=== PATIENT | female | born 1960 | race Two or more races ===

== ENCOUNTER 2019-04-09 06:08 | Inpatient (IN) | payer OTHER ==
[~2019-04-09] VITALS: Ht 152.4 cm; Wt 66.2 kg
[2019-04-09 08:00] VITALS: BP 115/76
[2019-04-09] MEDS ORDERED: ASPIRIN 81 MG TAB.CHEW PO SCH (09:30)
[2019-04-09] MEDS ORDERED: ATORVASTATIN 10 MG TABLET PO SCH (09:30)
[2019-04-09] MEDS ORDERED: CARVEDILOL 3.125 MG TABLET PO SCH (09:30)
[2019-04-09] MEDS ORDERED: IBUP-1957 PO (09:41)
[2019-04-09] MEDS ORDERED: ATOR20TA PO (09:41)
[2019-04-09] MEDS ORDERED: ASPI-605 PO (09:41)
[2019-04-09 11:02] LABS: BASOPHILS % (AUTO) 0.6 % (0.0-2.0); EOSINOPHILS % (AUTO) 1.2 % (0.0-6.0); HEMATOCRIT 40 % (33-45); HEMOGLOBIN 13.4 g/dL (11.5-14.8); LYMPHOCYTES # (AUTO) 1.7 /CMM (0.8-4.8); LYMPHOCYTES % (AUTO) 36.7 % (20.0-44.0); MEAN CORPUSCULAR HGB CONC 33 g/dl (31.0-36.0); MEAN CORPUSCULAR VOLUME 83 fL (82-100); MONOCYTES # (AUTO) 0.3 /CMM (0.1-1.30); MONOCYTES % (AUTO) 6.6 % (2.0-12.0); NEUTROPHILS # (AUTO) 2.5 /CMM (1.8-8.9); NEUTROPHILS % (AUTO) 54.9 % (43.0-81.0); PLATELET COUNT (AUTO) 186 /CMM (150-450); RED BLOOD CELL COUNT(AUTO) 4.84 MIL/uL (4.0-5.2); WHITE BLOOD COUNT (AUTO) 4.6 K/uL (4.3-11.0)
[2019-04-09 11:08] LABS: CALCIUM, SERUM 8.4 mg/dL (8.5-10.1); CREATININE 0.8 mg/dL (0.6-1.3); POTASSIUM 4.3 mmol/L (3.5-5.1)
[2019-04-09] MEDS ORDERED: CT SWABBABLE VALVE TRANS SET 1 EA INFUS.SET MC ONE (11:27)
[2019-04-09] MEDS ORDERED: IV NS 0.9% 250 ML IV ONE (11:27)
[2019-04-09] MEDS ORDERED: IOHEXOL-350 100 ML VIAL IV ONE (11:27)
[2019-04-09] MEDS ORDERED: NITROGLYCERIN 0.4 MG/TAB BOTTLE SL ONE (12:00)
[2019-04-09] MEDS ORDERED: IV NS 0.9% 500 ML IV PRN (12:00)
[2019-04-09] MEDS ORDERED: METOPROLOL TARTRATE INJ 5 MG/5 ML AMPUL IVP ONE (12:00)
[2019-04-09] MEDS ORDERED: ENOXAPARIN SODIUM 40 MG/0.4 ML DISP.SYRIN SQ SCH (13:00)
[2019-04-09 16:00] VITALS: BP 108/80
== END 2019-04-09 17:33 | disposition home or self-care (01) | DRG 203 ==
LOC: EDSEX 07:43 → TELE 07:43 → MED 10:33
PROVIDERS: ADMIT Nurse Practitioner Acute Care; ATTEND Nurse Practitioner Acute Care
DX: M94.0 Chondrocostal junction syndrome [Tietze] (principal); E78.5 Hyperlipidemia, unspecified; F41.9 Anxiety disorder, unspecified; I10 Essential (primary) hypertension; F17.210 Nicotine dependence, cigarettes, uncomplicated
CPT/HCPCS: 36415; 75574; 80048-TC; 85025-TC; 93307-TC; G0378; J1650; J7050; Q9967